=== PATIENT | male | born 1940 | race Caucasian/White ===

== ENCOUNTER 2018-05-17 10:24 | Outpatient (CLI) | payer MEDICARE ==
[~2018-05-17] VITALS: Ht 172.7 cm; Wt 111.4 kg
[2018-05-17 10:49] VITALS: BP 169/83
[2018-05-17] MEDS ORDERED: METO-333 PO (11:11)
[2018-05-17] MEDS ORDERED: AMLO5TAB9 PO (11:11)
[2018-05-17] MEDS ORDERED: FINA5TAB6 PO (11:11)
[2018-05-17] MEDS ORDERED: ASCO500C17 PO (11:11)
[2018-05-17] MEDS ORDERED: VITA1CAP PO (11:11)
[2018-05-17] MEDS ORDERED: ACET325C5 PO (11:12)
[2018-05-17] MEDS ORDERED: ACET-77 PO (14:21)
[2018-05-17] MEDS ORDERED: TRAM50TA2 PO (14:23)
== END 2018-05-17 14:54 | disposition home or self-care (01) ==
LOC: PREOP 10:24
PROVIDERS: ATTEND Orthopaedic Surgery Orthopaedic Surgery of the Spine
DX: Z01.818 Encounter for other preprocedural examination (principal)
CPT/HCPCS: 87081

== ENCOUNTER 2018-05-24 08:07 | Inpatient (IN) | payer MEDICARE ==
--- NOTE | 2018-05-17 14:23 | NUR ---
SPOKE WITH THE PATIENTS FAMILY OVER THE PHONE, SHE VERIFIED THAT THE PATIENT GETS SHORT TERM MEDICATIONS AT [facility] IN [place] BUT MAINTENANCE MEDS COME FROM [facility] MAIL ORDER. I CALLED [facility] AND VERIFIED THE PRESCRIPTION MEDICATION. [facility] FILLED TRAMADOL 50MG 1 Q4-6H PRN TODAY FOR THE PATIENT TO TAKE UNTIL SURGERY. THEY FILLED IT FOR #30 TABLETS. I ADDED IT TO THE MED REC AT THIS TIME. [facility] FILLED: 05-10-18 FINASTERIDE 5MG DAILY #90 05-10-18 METOPROLOL TARTRATE 25MG DAILY #90 04-27-18 AMLODIPINE 5MG DAILY #90 OTC MEDS: TYLENOL 500MG PRN B COMPLEX DAILY VITAMIN C BID
[~2018-05-24] VITALS: Ht 167.6 cm; Wt 108.2 kg
[~2018-05-24 08:07] MED LIST: ACET-77 PO; ACET325C5 PO; ACETAMINOPHEN 325 MG TABLET PO PRN; AMLO5TAB9 PO; ASCO500C17 PO; DOCUSATE SODIUM 100 MG (COLACE) CAP PO PRN; FINA5TAB6 PO; HYDROcodone/APAP 5 MG/325 MG (LORTAB) TAB PO PRN; METO-333 PO; ONDANSETRON 4 MG/2 ML (SDV) Z0FRAN IV PRN; TRAM50TA2 PO; VITA1CAP PO
[2018-05-24 08:20] VITALS: BP 107/77
[2018-05-24] MEDS: LACTATED RINGERS 1,000 ML IV PRN ×2 (08:36→10:52)
[2018-05-24] MEDS ORDERED: ceFAZolin 2 GM IV Premixed 50 ML IV ONE (08:45)
[2018-05-24] MEDS ORDERED: LIDOCAINE PF 2% 5 ML (XYLOCAINE) VIAL ONE (09:16)
[2018-05-24] MEDS ORDERED: ONDANSETRON 4 MG/2 ML (SDV) Z0FRAN ONE (09:16)
[2018-05-24] MEDS ORDERED: proPOfol 200 MG/20 ML (DIPRIVAN) VIAL IV ONE (09:16)
[2018-05-24] MEDS ORDERED: ROCURONIUM 10 MG/ML 5 ML SYRINGE IV ONE (09:16)
[2018-05-24] MEDS ORDERED: fentaNYL INJECTION 100 MCG/2 ML AMP ONE (09:17)
[2018-05-24] MEDS ORDERED: MIDAZOLAM 2 MG/2 ML (VERSED) VIAL ONE (09:17)
[2018-05-24] MEDS ORDERED: SUCCINYLCHOLINE INJ 100 MG/5 ML SYR ONE (09:19)
[2018-05-24] MEDS ORDERED: SEVOFLURANE (ULTANE) 15 ML INHAL SOLN ONE ×8 (09:22→11:42)
[2018-05-24] MEDS ORDERED: PROPOFOL INJECTION 0 ML IV ONE (09:22)
[2018-05-24] MEDS ORDERED: GENTAMICIN 40 MG/ML 2 ML INJ SDV ONE (09:42)
[2018-05-24] MEDS ORDERED: PROPOFOL INJECTION 50 ML IV ONE ×4 (10:35→11:42)
[2018-05-24] MEDS ORDERED: CEFAZOLIN IV SCH (11:00)
[2018-05-24] MEDS ORDERED: WATER IV SCH (11:00)
--- NOTE | 2018-05-24 11:35 | Progress Note-Post Operative ---
Post-Operative Progess Note Surgeon (s)/Commercial Diver (s) Surgeon YAN LUA MD Commercial Diver: EDIE Tay Pre-Operative Diagnosis Stenosis Post-Operative Diagnosis Same Procedure & Operative Findings Date of Procedure 05/24/18 Procedure Performed/Findings C3-6 ACDF Anesthesia Type GETA Estimated Blood Loss Estimated blood loss (mL): minimal Specimens/Packing Specimens Removed None YAN LUA MD May 24, 2018 11:35
[2018-05-24] MEDS ORDERED: GLYCOPYRROLATE 0.2 MG/ML (ROBINUL) 2 ML VIAL ONE (11:39)
[2018-05-24] MEDS ORDERED: NEOSTIGMINE 1 MG/ML 5 ML SYRINGE ONE (11:39)
[2018-05-24] MEDS ORDERED: morphine INJ 10 MG/ML 1ML (SYR OR VIAL) IVP ONE (12:00)
[2018-05-24] MEDS ORDERED: MEPERIDINE (DEMEROL) INJ 50 MG/ML IVP ONE (12:00)
[2018-05-24] MEDS ORDERED: ONDANSETRON 4 MG/2 ML (SDV) Z0FRAN IVP PRN (12:00)
[2018-05-24] MEDS ORDERED: morphine INJ 10 MG/ML 1ML (SYR OR VIAL) ONE (12:15)
[2018-05-24 12:25] VITALS: BP 173/73
--- NOTE | 2018-05-24 12:43 | Diagnostic Imaging Report ---
Indication: Fluoroscopy during cervical spine surgery. Fluoroscopy was provided in the OR during cervical spine surgery. 12 seconds of fluoroscopy was utilized. Anterior plate and screws transfix C3-C6 levels. Impression: Fluoroscopy during cervical spine surgery. Dictated by: Dictated on workstation # [id number]
[2018-05-24] MEDS: MULTIVIT W/MINERALS TAB (THERAGRAN M) PO SCH (14:20)
[2018-05-24] MEDS: MILK OF MAGNESIA 400 MG/5 ML 30 ML UDC PO SCH (14:20)
[2018-05-24] MEDS: PANTOPRAZOLE 40 MG (PROTONIX) TAB PO SCH (14:21)
[2018-05-24] MEDS: NS IV 1000 ML 1,000 ML IV SCH (15:52)
[2018-05-24] MEDS: morphine INJ 10 MG/ML 1ML (SYR OR VIAL) IVP PRN ×2 (15:52→19:28)
[2018-05-24 16:00] VITALS: BP 194/95
[2018-05-24] MEDS: ceFAZolin 2 GM IV Premixed 50 ML IV SCH (19:42)
[2018-05-24 20:00] VITALS: BP 165/79
--- NOTE | 2018-05-24 20:41 | OPERATIVE REPORT ---
DATE OF SERVICE: 05/24/2018 PREOPERATIVE DIAGNOSES: Cervical stenosis, neural canal degenerative disk and osseous structures, cervical spondylosis with myelopathy and cervical radiculopathy. POSTOPERATIVE DIAGNOSES: Cervical stenosis, neural canal degenerative disk and osseous structures, cervical spondylosis with myelopathy and cervical radiculopathy. PROCEDURES PERFORMED: 1. C3-4 anterior cervical diskectomy and fusion. 2. C4-5 anterior cervical diskectomy and fusion. 3. C5-C6 anterior cervical diskectomy and fusion. 4. C3-4, C4-5, C5-6 interbody cage instrumentation without interval fixation. 5. C3-C6 anterior plate instrumentation. 6. Allograft for spine surgery, morselized. DATE AND TIME OF SURGERY: Please see anesthesia record. IMPLANTS USED: K2M [place] cage, Medtronic Zevo plate, Medtronic Orthoblend bone graft. SURGEON: Yan Solitario MD. BIOFUELS PRODUCT DEVELOPMENT MANAGER: SANTHOSH Tay. ROLE OF AERODYNAMICS PROFESSOR: Aid in retraction of the procedure, aid in implantation, instrumentation and wound closure. ANESTHESIA: General endotracheal. ESTIMATED BLOOD LOSS: Less 100 mL. INTRAVENOUS FLUIDS: Please see anesthesia record. ANTIBIOTICS: Ancef. COMPLICATIONS: None. INDICATIONS FOR PROCEDURE: The patient is 78 male with progressively intolerable neck pain, gait disturbance, stenosis, failed conservative therapy, desires operative treatment. NEUROMONITORING: Standard intraoperative neuromonitoring carried out by means of real time continuous high quality bidirectional mode, audio and visual communication to both the automotive repair technician and surgeon by Dr. Owens was performed. SSEPS, EMGs, TcMEPs, TOFs were carried out continuously throughout the procedure stable. DESCRIPTION OF PROCEDURE: The patient was taken to the preoperative holding area and brought back to the operative suite. After adequate induction of general anesthesia, preoperative antibiotics, placed spinal monitoring, placed supine on the OR table. Shoulder roll was placed, head extended sterile prep and drape, the anterior cervical spine. A standard left-sided Ramirez-Tinsley approach, the appropriate levels carried out. Once appropriate levels were confirmed on imaging, Shadow-Line retractor was placed deep for the remainder of the case and starting at C3-4, Avon pins placed. Anterior diskectomy was carried out. Disk decompression all the way down to the posterior longitudinal ligament was performed. Implants were prepared. Trial spacer was utilized and the appropriate-sized [place] cage filled with Allograft bone was impacted in position with great fit achieved. Procedure was then carried out at C4-5 and C5-6 levels in a similar manner and once all three levels were performed, Avon pins were removed. The anterior osteophytes were taken down. The appropriate size Zevo plate was affixed to the spine with a combination of 13 mm, 15 mm and 17 mm variable angle screws. Locking mechanism was deployed. Wound was copiously irrigated. FloSeal and bipolar cautery used to aid in hemostasis. Deep drain was placed. Wound was closed in layers. The patient was transferred to recovery room in stable condition and tolerated the procedure well with stable spinal monitoring. Job ID: [id number] DocumentID: [id number] Dictated Date: 05/24/2018 11:35:13 [employer] Administrator Date: 05/24/2018 20:40:41 Dictated By: YAN SOLITARIO MD MTDD
[2018-05-25] VITALS: BP 184/88
[2018-05-25] MEDS: ceFAZolin 2 GM IV Premixed 50 ML IV SCH ×2 (01:05→10:09)
[2018-05-25] MEDS: NS IV 1000 ML 1,000 ML IV SCH ×3 (01:10→22:21)
[2018-05-25 04:00] VITALS: BP 181/86
[2018-05-25] MEDS: MULTIVIT W/MINERALS TAB (THERAGRAN M) PO SCH (06:15)
[2018-05-25] MEDS: PANTOPRAZOLE 40 MG (PROTONIX) TAB PO SCH (06:15)
--- NOTE | 2018-05-25 07:25 | Progress Note (SOAP) ---
Subjective Date Seen by a Provider: May 25, 2018 Time Seen by a Provider: 07:23 Subjective/Events-last exam Pain ok, hands feel better. Worried about baker. Wants to shower. Objective Exam Vital Signs Date Time Temp Pulse Resp B/P (MAP) Pulse Ox O2 Delivery O2 Flow Rate FiO2 05/25/18 04:00 96.7 89 20 181/86 (117) 91 Room Air 05/25/18 00:00 98.6 92 20 184/88 (120) 97 Room Air 05/24/18 20:00 98.8 101 19 165/79 (107) 90 Room Air 05/24/18 16:00 96.5 110 18 194/95 (128) 91 Room Air 05/24/18 12:55 Room Air 05/24/18 12:25 95.9 85 18 173/73 (106) 92 Room Air 05/24/18 09:04 95 Room Air 05/24/18 08:20 97.0 86 22 107/77 (87) 95 Room Air I & O 05/25/18 07:00 Intake Total 2400 ml Output Total 3195 ml Balance -795 ml Capillary Refill : General Appearance: No Apparent Distress HEENT: Other (phonation good, no stridor, ) Neck: Supple Respiratory: No Accessory Muscle Use, No Respiratory Distress Gastrointestinal: soft Extremity: No Calf Tenderness Neurologic/Psychiatric: Alert, Oriented x3, No Motor/Sensory Deficits Skin: Other (incision good) Assessment/Plan Assessment/Plan Assess & Plan/Chief Complaint Cervical Spondylosis with myelopathy Cervical Stenosis Urinary retention Plan: Try d/c baker, may need leg bag. Up with PT today D/C drain later today. YAN LUA MD May 25, 2018 07:25
[2018-05-25 08:00] VITALS: BP 199/91
[2018-05-25] MEDS: MILK OF MAGNESIA 400 MG/5 ML 30 ML UDC PO SCH (09:06)
--- NOTE | 2018-05-25 09:38 | Consultation-Hospitalist ---
KAREN GAMBINO 05/25/18 0938: HPI History of Present Illness: HPI/Chief Complaint CC: s/p uncomplicated cervical spine surgery by Dr. 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, who had an uncomplicated cervical spine surgery yesterday He is having some cough so I did note course breath sounds and will initiate nebulizer treatments Pt was counseled on the use of his IS Pt's is wondering why he has tremors all the time and I updated her on the likelihood of cervical spine surgery causing tremors, but may need workup as an outpatient Elevated blood pressure requiring Norvasc restarted Catheter is in place He used to walk ten miles a day before his back surgery Source: patient, family Exam Limitations: no limitations Date Seen 05/25/18 Attending Physician [place] Solitario MD PCP No,Local Physician Referring Physician Date of Admission May 24, 2018 at 08:07 Home Medications & Allergies Home Medications Reviewed patient Home Medication Reconciliation performed by pharmacy medication reconciliations forestry aid technician and/or nursing. Patients Allergies have been reviewed. Allergies Allergies Coded Allergies diphenhydramine (Verified Allergy, Unknown, 05/24/18) zolpidem (Verified Allergy, Unknown, 05/24/18) Past Nffgykq-Hbpkev-Nprvgz Hx Past Med/Social Hx: Reviewed Nursing Past Med/Soc Hx, Reviewed and Corrections made Patient Social History Marrital Status: Employed/Student: retired Alcohol Use: Occasionally Uses Alcohol Beverage of Choice: Beer Recreational Drug Use: No Smoking Status: Former Smoker Physical Abuse Screen: No Sexual Abuse: No Recent Foreign Travel: No Contact w/other who traveled: No Recent Hopitalizations: No Recent Infectious Disease Expo: No Immunizations Up To Date Date of Pneumonia Vaccine: Jan 25, 2018 Seasonal Allergies Seasonal Allergies: No Past Medical History Surgeries: Orthopedic Cardiac: Hypertension Sexually Transmitted Disease: No HIV/AIDS: No Genitourinary: Benign Prostatic Hyperpl Musculoskeletal: Arthritis, Chronic Back Pain HEENT: Macular Degeneration Loss of Vision: Bilateral Hearing Impairment: Denies Psychosocial: Anxiety, Depression History of Blood Disorders: No Adverse Reaction to Blood Lewis: No Family History Patient reports no known family medical history. Hypertension Review of Systems Constitutional: see HPI, weakness EENTM: no symptoms reported Respiratory: no symptoms reported Cardiovascular: no symptoms reported Gastrointestinal: no symptoms reported Genitourinary: other (catheter in place) Musculoskeletal: neck pain Skin: no symptoms reported Psychiatric/Neurological: Tremors Physical Exam Physical Exam Vital Signs Vital Signs - First Documented 05/24/18 08:20 Temp 97.0 Pulse 86 Resp 22 B/P (MAP) 107/77 (87) Pulse Ox 95 O2 Delivery Room Air Capillary Refill : Height, Weight, BMI Height: 5'6.00" Weight: 238lbs. 8.0oz. 108.424299xr; 36.4 BMI Method: General Appearance: No Apparent Distress, WD/WN, Chronically ill Eyes: Bilateral Eye Normal Inspection, Bilateral Eye PERRL HEENT: PERRL/EOMI, TMs Normal, Normal ENT Inspection, Pharynx Normal, Other ( phonation good, no stridor, ) Neck: Full Range of Motion, Normal Inspection, Non Tender, Supple Respiratory: Chest Non Tender, No Accessory Muscle Use, No Respiratory Distress , Crackles, Expiration, Rales, Wheezing Cardiovascular: Regular Rate, Rhythm, No Edema, No Gallop, No JVD, No Murmur, Normal Peripheral Pulses Gastrointestinal: Normal Bowel Sounds, No Organomegaly, No Pulsatile Mass, Non Tender, Soft Back: Normal Inspection, No CVA Tenderness, No Vertebral Tenderness Extremity: No Calf Tenderness Neurologic/Psychiatric: Alert, Oriented x3, No Motor/Sensory Deficits Skin: Normal Color, Warm/Dry, Other (incision good) Lymphatic: No Adenopathy Results Results/Procedures Labs Laboratory Tests 05/25/18 11:31 Patient resulted labs reviewed. Assessment/Plan Assessment and Plan Assess & Plan/Chief Complaint Assessment: S/p uncomplicated cervical spine surgery POD # 1 Course breath sounds initiated, nebulizer treatments and IS and checking CXR Former smoker HTN Tremor New hypercalcemia Plan: Pain control Check labs in AM Restart blood pressure medicine Check ionized calcium and PTH but I suspect neoplastic process causing the Hypercalcemia Check CT scan in morning Rubio catheter will be removed per protocol Nebs O2 Diagnosis/Problems Diagnosis/Problems (1) Cervical spondylosis with myelopathy Status: Acute (2) Cervical stenosis of spinal canal Status: Resolved (3) Hypercalcemia Status: Acute (4) Hypertension Status: Chronic Qualifiers: Hypertension type: essential hypertension Qualified Codes: I10 - Essential (primary) hypertension (5) Benign prostate hyperplasia Status: Chronic Qualifiers: Lower urinary tract symptom presence: unspecified whether lower urinary tract symptoms present Qualified Codes: N40.0 - Benign prostatic hyperplasia without lower urinary tract symptoms (6) Rales Status: Acute (7) Former smoker Status: Chronic (8) Indwelling Rubio catheter present Status: Acute (9) Leukocytosis Status: Acute Qualifiers: Leukocytosis type: leukemoid reaction Qualified Codes: D72.823 - Leukemoid reaction (10) Lung mass Status: Acute GISELL GOODEN MEDICAL STUDENT 05/25/18 1230: HPI History of Present Illness: HPI/Chief Complaint CC: Post/op C3-C6 fusion HPI: This is a 78 yo white male who was admitted to [facility] s/p C3-[address] Solitario for recovery and inpatient PT/OT. The pt denies any pain or difficulty with urination/bowel movements. The is concerned for increased tremors in the pt's bilateral hands since recovering from anesthesia. The states the tremors are chronic and the pt has not seen a Neurologist for evaluation. The pt feels he is more "shaky" since he is still unsteady in his movements since surgery. Denies numbness, weakness, tingling. Source: patient, family Exam Limitations: no limitations Referring Physician Dr. Solitario Home Medications & Allergies Home Medications Active Scripts Medications Dose Route/Sig Max Daily Dose Days Date Category Tramadol HCl 50 Mg Tablet 50 Mg PO EVERY 4-6 HOURS PRN 05/17/18 Reported Acetaminophen 500 Mg Tablet 500-1,000 Mg PO Q6H PRN 05/17/18 Reported Vitamin B Complex 1 Each Capsule 1 Cap PO DAILY 05/17/18 Reported Vitamin C (Ascorbic Acid) 500 Mg Capsule 500 Mg PO BID 05/17/18 Reported Finasteride 5 Mg Tablet 5 Mg PO DAILY 05/17/18 Reported Metoprolol Tartrate 25 Mg Tablet 25 Mg PO HS 05/17/18 Reported Amlodipine Besylate 5 Mg Tablet 5 Mg PO DAILY 05/17/18 Reported Past Osdsoef-Iussme-Wgvxsd Hx Past Med/Social Hx: Reviewed Nursing Past Med/Soc Hx Patient Social History Marrital Status: Alcohol Use: Occasionally Uses Alcohol Beverage of Choice: Beer Recreational Drug Use: No Smoking Status: Former Smoker Former Smoker, Quit: May 25, 2018 Physical Abuse Screen: No Sexual Abuse: No Recent Foreign Travel: No Contact w/other who traveled: No Recent Hopitalizations: No Recent Infectious Disease Expo: No Seasonal Allergies Seasonal Allergies: No Past Medical History Cardiac: Hypertension Genitourinary: Benign Prostatic Hyperpl Musculoskeletal: Arthritis, Chronic Back Pain History of Blood Disorders: No Adverse Reaction to Blood Lewis: No Family History Patient reports no known family medical history. No Pertinent Family Hx Review of Systems Constitutional: No chills, No fever EENTM: No hearing loss, No double vision Respiratory: No cough, No dyspnea on exertion, No short of breath Cardiovascular: No chest pain Gastrointestinal: No abdominal pain, No nausea, No vomiting Genitourinary: No dysuria Musculoskeletal: neck pain Skin: no symptoms reported Psychiatric/Neurological: No Symptoms Reported Physical Exam Physical Exam General Appearance: No Apparent Distress, WD/WN Eyes: Bilateral Eye PERRL, Bilateral Eye EOMI HEENT: TMs Normal, Normal ENT Inspection, Pharynx Normal, Moist Mucous Membranes, Other (neck brace in place) Respiratory: Chest Non Tender, No Accessory Muscle Use, No Respiratory Distress , Expiration, Wheezing Cardiovascular: Regular Rate, Rhythm, No Edema, No Gallop, Normal Peripheral Pulses Gastrointestinal: Normal Bowel Sounds, No Organomegaly, No Pulsatile Mass, Non Tender, Soft Extremity: Normal Capillary Refill, Normal Range of Motion, Non Tender, No Calf Tenderness, No Pedal Edema Neurologic/Psychiatric: Alert, Oriented x3, No Motor/Sensory Deficits, Normal Mood/Affect, sap consultant II-XII Norm as Tested Skin: Normal Color, Warm/Dry Lymphatic: No Adenopathy Results Results/Procedures Imaging: Reviewed Imaging Films, Reviewed Imaging Report Assessment/Plan Assessment and Plan Assess & Plan/Chief Complaint Assessment: Cervical spondylosis and stenosis s/p C3-6 fusion Adventitious breath sounds, crackles Hypercalcemia Tremor BPH HTN Prior smoker Plan: Instructed pt to continue incentive spirometry Duonebs one time to help clear chest congestion Monitor electrolytes and pt condition, if hypercalcemia worsens can order PTH level and EKG CXR to r/o lung mass as cause of coarse breath sounds and hypercalcemia PT/OT Tremor appeared to be worse with movement, most likely essential. Pt can f/u w/ Neurology as outpatient if needed Continue home meds Diagnosis/Problems Diagnosis/Problems (1) Cervical spondylosis with myelopathy Status: Acute (2) Cervical stenosis of spinal canal Status: Resolved (3) Hypercalcemia Status: Acute (4) Hypertension Status: Chronic Qualifiers: Hypertension type: essential hypertension Qualified Codes: I10 - Essential (primary) hypertension (5) Benign prostate hyperplasia Status: Chronic Qualifiers: Lower urinary tract symptom presence: unspecified whether lower urinary tract symptoms present Qualified Codes: N40.0 - Benign prostatic hyperplasia without lower urinary tract symptoms KAREN GAMBINO DO May 25, 2018 09:38 GISELL GOODEN MEDICAL STUDENT May 25, 2018 12:30
[2018-05-25] MEDS ORDERED: amLODIPine 5 MG (NORVASC) TAB PO NR (09:45)
--- NOTE | 2018-05-25 10:15 | Physical Therapy Evaluation ---
PT Evaluation-General Medical Diagnosis Admission Date May 24, 2018 at 08:07 Medical Diagnosis: cervical stenosis Onset Date: May 24, 2018 Therapy Diagnosis Therapy Diagnosis: debility Height/Weight Height (Feet): 5 Height (Inches): 6.00 Weight (Pounds): 238 Weight (Ounces): 8.0 Precautions Precautions/Isolations: Standard Precautions Weight Bear Status Right Lower Extremity: Right Full Weight Bearing Left Lower Extremity: Left Full Weight Bearing Referral Physician: Altaf Reason for Referral: Evaluation/Treatment Medical History Current History s/p cervical myelopathy Reviewed History: Yes Social History Home: Single Level Current Living Status: Spouse Prior/Core FIM Prior Level of Function Therapy Code Descriptions/Definitions Functional [place] Measure: 0=Not Assessed/NA 4=Minimal Assistance 1=Total Assistance 5=Supervision or Setup 2=Maximal Assistance 6=Modified [place] 3=Moderate Assistance 7=Complete [place] Therapy Quality Codes: 6 Independent with activity with or without an assistive device 5 Patient requires set up or clean up by helper. Patient completes activity by themselves 4 Supervision or touching assist (CGA). Jasper provide cues , steadying assist 3 The helper provides less than half the effort to complete the activity 2 The helper provides more than half the effort to complete the activity 1 Dependent. The helper does all the effort to complete an activity 7 Patient refused to complete or attempt activity 9 The patient did not perform the activity before the current illness or injury 88 Not attempted due to Medical conditions or safety concerns Functional Abilities and Goals: Independent: Patient completed the activities by him/herself, with or without an assistive device, with no assistance from a helper. Needed Some Help: Patient needed partial assistance from another person to complete activities. Dependent: A helper completed the activities for the patient. Unknown: Not Applicable: Bed Mobility: 6 Transfers (B,C,W/C) (FIM): 6 Gait: 6 Indoor Mobility (Ambulation): Independent Stairs: Independent Prior Devices Use: Walker PT Evaluation-Current Subjective Patient and spouse agree to PT. Pain Numeric Pain Scale: 5-Moderate Pain Location: Soft Tissue Location Body Site: Neck Pain Description: Acute Objective Patient Orientation: Normal For Age Problem Solving: Fair Attachments: Rubio Catheter, IV ROM/Strength ROM Lower Extremities bilateral LE WFL Strength Lower Extremities 4-/5 grossly bilaterally Integumentary/Posture Integumentary refer to nursing note Bladder Incontinence: Rubio Cath Posture slightly kyphotic Neuromuscular (Tone, Coordination, Reflexes) slightly diminished with all/when he becomes anxious, he demonstrates bilateral hand tremors Sensory Vision: macular degeneration Hearing: Impaired Sensation Right Lower Extremit: Impaired Sensation Left Lower Extremity: Impaired Transfers Therapy Code Descriptions/Definitions Functional [place] Measure: 0=Not Assessed/NA 4=Minimal Assistance 1=Total Assistance 5=Supervision or Setup 2=Maximal Assistance 6=Modified [place] 3=Moderate Assistance 7=Complete [place] Transfers (B, C, W/C) (FIM): 5 Scootin Rollin Supine to/from Sit: 5 Sit to/from Stand: 5 Gait Mode of Locomotion: Walk Anticipated Mode of Locomotion: Walk Gait (FIM): 4 Distance (FIM): 3=150 ft Distance: 250' Gait Level of Assist: 4 Gait Persons Needed: 1 Gait Assistive Device: FWW Comments/Gait Description steady pace,/safe and functional Balance Sitting Static: Good Sitting Dynamic: Good Standing Static: Good Standing Dynamic: Good Assessment/Needs 78 y.o. male, will benefit from short term skilled PT to address functional strength and mobility to improve current LOF and to safely return to home with spouse at maximum LOF. Rehab Potential: Fair PT Short Term Goals Short Term Goals Time Frame: May 28, 2018 Transfers (B,C,W/C) (FIM): 5 Gait (FIM): 5 Distance (FIM): 3=150 ft Gait Distance Comment: 250' Gait Level of Assist: 5 Gait Assistive Device: FWW PT Plan Problem List Problem List: Activity Tolerance, Safety, Gait Treatment/Plan Treatment Plan: Continue Plan of Care Treatment Plan: Bed Mobility, Education, Functional Activity Eriberto, Functional Strength, Gait, Safety, Therapeutic Exercise, Transfers Treatment Duration: May 28, 2018 Frequency: 4 times per week Estimated Hrs Per Day: .25 hour per day Patient and/or Family Agrees t: Yes Discharge Recommendations Therapy D/C Recommendations: Home w/ Family Support Time/GCodes Time In: 827 Time Out: 851 Total Billed Treatment Time: 24 Total Billed Treatment 1 visit EVModC 24 min KIMBERLY BURTON PT May 25, 2018 10:15
--- NOTE | 2018-05-25 10:49 | Diagnostic Imaging Report ---
PATIENT HISTORY: Cervical spine fusion, postop. TECHNIQUE: Two views of the cervical spine. COMPARISON: Fluoroscopy from 05/24/2018. FINDINGS: There is fusion of the cervical spine from C3 through C6 with an anterior plate and paired screws at each level. Interbody disc spacers are seen at the interval levels as well. No spondylolisthesis is seen. No immediate hardware complication is seen. There is mild prevertebral soft tissue edema. A surgical drain is noted. IMPRESSION: Anterior fusion of C3 through C6 without immediate hardware complication seen. Dictated by: Dictated on workstation # [id number]
[2018-05-25 11:41] LABS: BASOPHILS % (AUTO) 0 % (0-10); EOSINOPHILS % (AUTO) 0 % (0-10); HEMATOCRIT 40 % (40-54); HEMOGLOBIN 14.5 G/DL (13.3-17.7); LYMPHOCYTES # (AUTO) 1.7 X 10^3 (1.0-4.0); LYMPHOCYTES % (AUTO) 8 % (12-44); MEAN CORPUSCULAR HEMOGLOBIN 34 PG (25-34); MEAN CORPUSCULAR HGB CONC 36 G/DL (32-36); MEAN CORPUSCULAR VOLUME 95 FL (80-99); MONOCYTES # (AUTO) 1.9 X 10^3 (0.0-1.0); MONOCYTES % (AUTO) 10 % (0-12); NEUTROPHILS # (AUTO) 16.7 X 10^3 (1.8-7.8); NEUTROPHILS % (AUTO) 82 % (42-75); PLATELET COUNT 274 10^3/uL (130-400); RED CELL DISTRIBUTION WIDTH 13.3 % (10.0-14.5); WHITE BLOOD COUNT 20.3 10^3/uL (4.3-11.0)
--- NOTE | 2018-05-25 11:54 | Occupational Therapy Eval ---
OT Evaluation-General/PLF Medical Diagnosis Admission Date May 24, 2018 at 08:07 Medical Diagnosis: cervical stenosis Onset Date: May 24, 2018 Therapy Diagnosis Therapy Diagnosis: decreased self care skills Height/Weight Height (Feet): 5 Height (Inches): 6.00 Weight (Pounds): 238 Weight (Ounces): 8.0 Precautions Precautions/Isolations: Fall Prevention, Standard Precautions Safety Interventions: Notify Family, Bed Exit Alarm, Reorient-PRN Comments cervical collar Referral Physician: Altaf Medical History Pertinent Medical History: Arthritis Additional Medical History chronic back pain, macular degeneration, anxiety, depression Current History pt s/p cervical surgery Reviewed History: Yes Social History Home: Single Level Current Living Status: Spouse Entry Into Home: Stairs With Railing Steps Into Home: 5 ADL-Prior Level of Function Therapy Code Descriptions/Definitions Functional Sweeny Measure: 0=Not Assessed/NA 4=Minimal Assistance 1=Total Assistance 5=Supervision or Setup 2=Maximal Assistance 6=Modified Sweeny 3=Moderate Assistance 7=Complete Sweeny Therapy Quality Codes: 6 Independent with activity with or without an assistive device 5 Patient requires set up or clean up by helper. Patient completes activity by themselves 4 Supervision or touching assist (CGA). [place] provide cues , steadying assist 3 The helper provides less than half the effort to complete the activity 2 The helper provides more than half the effort to complete the activity 1 Dependent. The helper does all the effort to complete an activity 7 Patient refused to complete or attempt activity 9 The patient did not perform the activity before the current illness or injury 88 Not attempted due to Medical conditions or safety concerns Functional Abilities and Goals: Independent: Patient completed the activities by him/herself, with or without an assistive device, with no assistance from a helper. Needed Some Help: Patient needed partial assistance from another person to complete activities. Dependent: A helper completed the activities for the patient. Unknown: Not Applicable: ADL PLOF Comments Pt states he was independent prior to surgery. Spouse states she was assisting with socks and shoes. Uses a cane for mobility. Self Care: Needed Some Help DME/Equipment: Tall Toilet, Tub/Shower OT Current Status Subjective Pt sitting in chair, agrees to treatment. Reports 3/10 pain. Mental Status/Objective Patient Orientation: Person, Place Attachments: Rubio Catheter, IV Current Glasses/Contacts: No Dentures/Partials: Yes Hand Dominance: Right Upper Extremity ROM mildly decreased Upper Extremity Coordination decreased bilaterally Upper Extremity Sensation Pt reports numbness in bilateral hands. States rapid onset about 4 months ago. ADL-Treatment ADL-Current Pt participated in UE assessment while seated. Pt declined grooming or dressing at this time. States he will complete shower later today after IV is finished. Pt demonstrated sit to stand with supervision and cues for safety. Demonstrates ability to perform transfer with CGA using FWW. Pt declined ADL tasks. Pt sitting in chair with needs met and spouse present after session. Therapy Code Descriptions/Definitions Functional Sweeny Measure: 0=Not Assessed/NA 4=Minimal Assistance 1=Total Assistance 5=Supervision or Setup 2=Maximal Assistance 6=Modified Sweeny 3=Moderate Assistance 7=Complete Sweeny Therapy Quality Codes: 6 Independent with activity with or without an assistive device 5 Patient requires set up or clean up by helper. Patient completes activity by themselves 4 Supervision or touching assist (CGA). [place] provide cues , steadying assist 3 The helper provides less than half the effort to complete the activity 2 The helper provides more than half the effort to complete the activity 1 Dependent. The helper does all the effort to complete an activity 7 Patient refused to complete or attempt activity 9 The patient did not perform the activity before the current illness or injury 88 Not attempted due to Medical conditions or safety concerns Eating (FIM): 5 (Pt reports feeding self after set up) Education OT Patient Education: Rehab process Teaching Recipient: Patient Teaching Methods: Discussion Response to Teaching: Verbalize Understanding OT Short Term Goals Short Term Goals Transfers (B,C,W/C) (FIM): 5 1=Demonstrate adherence to instructed precautions during ADL tasks. 2=Patient will verbalize/demonstrate understanding of assistive devices/ modifications for ADL. 3=Patient will improve strength/tolerance for activity to enable patient to perform ADL's. OT Correction Goals Correction Goals Time Frame: Jun 01, 2018 Eating (FIM): 6 Grooming(FIM): 6 Upper Body Dressing(FIM): 5 Lower Body Dressing(FIM): 5 Toileting(FIM): 5 Toilet/Commode Transfer(FIM): 5 Additional Goals: 1-Demonstrate ADL Tasks, 2-Verbalize Understanding, 3- ImproveStrength/[place] 1=Demonstrate adherence to instructed precautions during ADL tasks. 2=Patient will verbalize/demonstrate understanding of assistive devices/ modifications for ADL. 3=Patient will improve strength/tolerance for activity to enable patient to perform ADL's. OT Education/Plan Problem List/Assessment Assessment: Decreased Activ Tolerance, Decreased UE Strength, Dependent Transfers, Impaired Self-Care Skills Pt to benefit from skilled OT intervention for ADL training, transfers, strengthening, and home safety education to increase independence and allow safe discharge. Discharge Recommendations Plan/Recommendations: Continue POC Treatment Plan/Plan of Care Treatment,Training & Education: Yes Patient would benefit from OT for education, treatment and training to promote independence in ADL's, mobility, safety and/or upper extremity function for ADL' s. Plan of Care: ADL Retraining, Functional Mobility, UE Funct Exercise/Act Treatment Duration: Jun 01, 2018 Frequency: 5 times per week Estimated Hrs Per Day: .25 hour per day Rehab Potential: Fair Time/GCodes Start Time: 10:38 Stop Time: 10:56 Total Time Billed (hr/min): 18 Billed Treatment Time 1 visit, EVM(18minutes) JOLLY STONE OT May 25, 2018 11:54
[2018-05-25 11:59] LABS: ALBUMIN 4.1 GM/DL (3.2-4.5); BILIRUBIN,TOTAL 0.4 MG/DL (0.1-1.0); CREATININE SERUM 1.18 MG/DL (0.60-1.30); POTASSIUM 3.7 MMOL/L (3.6-5.0)
[2018-05-25 12:00] VITALS: BP 186/87
[2018-05-25 12:13] LABS: BASOPHILS % (MANUAL) 0 %; EOSINOPHILS % (MANUAL) 0 %; LYMPHOCYTES % (MANUAL) 5 %; MONOCYTES % (MANUAL) 7 %; NEUTROPHILS % (MANUAL) 88 %; RBC MORPH NORMAL
--- NOTE | 2018-05-25 15:16 | NUR ---
Pastoral care visit, offered support, expressed department availability and services.
[2018-05-25 16:00] VITALS: BP 167/74
[2018-05-25] MEDS: RT-ALBUTEROL SULF 2.5 MG/3 ML PRE-MIX VIAL INH SCH ×3 (16:05→21:38)
--- NOTE | 2018-05-25 16:53 | Anesthesia-General Post-Op ---
General Patient Condition Mental Status/LOC: Same as Preop Cardiovascular: Satisfactory Nausea/Vomiting: Absent Respiratory: Satisfactory Pain: Controlled Complications: Absent Post Op Complications Complications None Follow Up Care/Instructions Patient Instructions None needed. Anesthesia/Patient Condition Patient Condition Patient is doing well, having essential tremors which are not new for the patient, stable vital signs, no apparent adverse anesthesia problems. JULIAN GIANG DO May 25, 2018 16:53
--- NOTE | 2018-05-25 17:03 | Diagnostic Imaging Report ---
INDICATION: Wheezing and elevated calcium levels. Time of exam 2:19 p.m. COMPARISON: No prior studies are available for comparison. FINDINGS: The heart is mildly enlarged. There is a lobulated density in the right base, best seen on the frontal view. There also appears to be a small to moderate effusion on the right. Left lung is fairly clear. No pneumothorax is seen. IMPRESSION: Right basilar density. Mass cannot be entirely excluded. CT chest is recommended for further evaluation. Dictated by: Dictated on workstation # [id number]
[2018-05-25 19:18] VITALS: BP 172/83
[2018-05-25] MEDS ORDERED: meTOprolol TARTRATE 25 MG (LOPRESSOR) TABLET PO SCH (21:00)
[2018-05-26] VITALS: BP 187/95
[2018-05-26 04:27] VITALS: BP 128/80
--- NOTE | 2018-05-26 05:08 | NUR ---
THIS RN NOTIFIED OF CRITICAL LAB RESULTS ON IONIZED CALCIUM AND CALCIUM PTH. DR. GAMBINO AWARE OF CRITICAL VALUES AND UNABLE TO NOTIFY AT THIS TIME. WILL PASS ON TO DAYS SHIFT
[2018-05-26 06:27] LABS: BASOPHILS % (AUTO) 0 % (0-10); EOSINOPHILS % (AUTO) 0 % (0-10); HEMATOCRIT 38 % (40-54); HEMOGLOBIN 13.6 G/DL (13.3-17.7); LYMPHOCYTES # (AUTO) 1.2 X 10^3 (1.0-4.0); LYMPHOCYTES % (AUTO) 7 % (12-44); MEAN CORPUSCULAR HEMOGLOBIN 34 PG (25-34); MEAN CORPUSCULAR HGB CONC 36 G/DL (32-36); MEAN CORPUSCULAR VOLUME 94 FL (80-99); MONOCYTES # (AUTO) 1.8 X 10^3 (0.0-1.0); MONOCYTES % (AUTO) 10 % (0-12); NEUTROPHILS # (AUTO) 14.6 X 10^3 (1.8-7.8); NEUTROPHILS % (AUTO) 83 % (42-75); PLATELET COUNT 266 10^3/uL (130-400); RED CELL DISTRIBUTION WIDTH 13.1 % (10.0-14.5); WHITE BLOOD COUNT 17.5 10^3/uL (4.3-11.0)
[2018-05-26] MEDS: MULTIVIT W/MINERALS TAB (THERAGRAN M) PO SCH (06:46)
[2018-05-26] MEDS: PANTOPRAZOLE 40 MG (PROTONIX) TAB PO SCH (06:46)
--- NOTE | 2018-05-26 06:53 | Progress Note (SOAP) ---
Subjective Time Seen by a Provider: 06:51 Subjective/Events-last exam Pt states that he is doing better. Has better use of his arms and hands and the numbness is improving. Objective Exam Vital Signs Date Time Temp Pulse Resp B/P (MAP) Pulse Ox O2 Delivery O2 Flow Rate FiO2 05/26/18 04:27 97.4 94 20 128/80 (96) 96 Room Air 05/26/18 00:00 98.0 86 16 187/95 (125) 93 Room Air 05/25/18 21:00 Room Air 05/25/18 19:18 96.2 93 16 172/83 (112) 95 Room Air 05/25/18 16:07 95 Room Air 05/25/18 16:00 97.7 102 22 167/74 (105) 96 Room Air 05/25/18 12:00 97.1 79 18 186/87 (120) 96 Room Air 05/25/18 08:15 Room Air 05/25/18 08:00 98.3 89 18 199/91 (127) 95 Room Air I & O 05/26/18 07:00 Intake Total 2350 ml Output Total 660 ml Balance 1690 ml Capillary Refill : General Appearance: No Apparent Distress Extremity: Normal Range of Motion, No Calf Tenderness Neurologic/Psychiatric: Alert, Oriented x3, Sensory Deficit Results Lab Laboratory Tests 05/25/18 11:31: White Blood Count 20.3H, Red Blood Count 4.26L, Hemoglobin 14.5, Hematocrit 40, Mean Corpuscular Volume 95, Mean Corpuscular Hemoglobin 34, Mean Corpuscular Hemoglobin Concent 36, Red Cell Distribution Width 13.3, Platelet Count 274, Mean Platelet Volume 9.0, Neutrophils (%) (Auto) 82H, Lymphocytes (%) (Auto) 8L , Monocytes (%) (Auto) 10, Eosinophils (%) (Auto) 0, Basophils (%) (Auto) 0, Neutrophils # (Auto) 16.7H, Lymphocytes # (Auto) 1.7, Monocytes # (Auto) 1.9H, Eosinophils # (Auto) 0.0, Basophils # (Auto) 0.0, Neutrophils % (Manual) 88, Lymphocytes % (Manual) 5, Monocytes % (Manual) 7, Eosinophils % (Manual) 0, Basophils % (Manual) 0, Blood Morphology Comment NORMAL, Sodium Level 139, Potassium Level 3.7, Chloride Level 101, Carbon Dioxide Level 24, Anion Gap 14, Blood Urea Nitrogen 22H, Creatinine 1.18, Estimat Glomerular Filtration Rate 60 , BUN/Creatinine Ratio 19, Glucose Level 112H, Calcium Level 13.0*H, Corrected Calcium 12.9H, Total Bilirubin 0.4, Aspartate Amino Transf (AST/SGOT) 44H, Alanine Aminotransferase (ALT/SGPT) 18, Alkaline Phosphatase 112, Total Protein 8.0, Albumin 4.1 05/25/18 13:50: Ionized Calcium (Measured) 1.70*H, Ionized Calcium pH 7.40, Ionized Calcium ( Corrected) 1.71H, Parathyroid Hormone (Intact) 7.2L, Calcium (PTH Intact) 12.7*H 05/26/18 06:10: White Blood Count 17.5H, Red Blood Count 4.01L, Hemoglobin 13.6, Hematocrit 38L , Mean Corpuscular Volume 94, Mean Corpuscular Hemoglobin 34, Mean Corpuscular Hemoglobin Concent 36, Red Cell Distribution Width 13.1, Platelet Count 266, Mean Platelet Volume 9.0, Neutrophils (%) (Auto) 83H, Lymphocytes (%) (Auto) 7L , Monocytes (%) (Auto) 10, Eosinophils (%) (Auto) 0, Basophils (%) (Auto) 0, Neutrophils # (Auto) 14.6H, Lymphocytes # (Auto) 1.2, Monocytes # (Auto) 1.8H, Eosinophils # (Auto) 0.0, Basophils # (Auto) 0.0 Assessment/Plan Assessment/Plan Assess & Plan/Chief Complaint S/P Cervical fusion Stable from spine standpoint Continue with care with LOYD Pitt May 26, 2018 06:53
[2018-05-26 07:01] LABS: ALANINE AMINOTRANSFERASE 19 U/L (0-55); ALBUMIN 3.9 GM/DL (3.2-4.5); ALKALINE PHOSPHATASE 110 U/L (40-136); BILIRUBIN,TOTAL 0.7 MG/DL (0.1-1.0); BUN/CREATININE RATIO 20; CALCIUM 12.7 MG/DL (8.5-10.1); CARBON DIOXIDE 19 MMOL/L (21-32); CHLORIDE 100 MMOL/L (98-107); CREATININE SERUM 1.11 MG/DL (0.60-1.30); GFR ESTIMATED > 60; GLUCOSE 107 MG/DL (70-105); POTASSIUM 3.8 MMOL/L (3.6-5.0); SODIUM 134 MMOL/L (135-145); TOTAL PROTEIN 7.2 GM/DL (6.4-8.2)
[2018-05-26] MEDS ORDERED: NS 100 ML (IVPB) BAG IV ONE (08:30)
[2018-05-26] MEDS ORDERED: IOHEXOL 350 MG/ML 100 ML (OMNIPAQUE 350) VIAL IV ONE (08:30)
[2018-05-26] MEDS ORDERED: RECEIVED CONTRAST (Hold Metformin) IV SCH (08:30)
--- NOTE | 2018-05-26 08:50 | NUR ---
THIS RN WAS GOING TO PATIENT'S ROOM WHEN PCT INFORMED THAT PATIENT WAS LEAVING AMA AND WAS ALREADY IN CAR. PATIENT'S WAS IN ROOM PACKING BELONGINGS. SPOKE WITH ABOUT REASONING AND INFORMED HER OF RISKS OF PATIENT LEAVING BEFORE DR SHEPHERD
[2018-05-26] MEDS ORDERED: FINASTERIDE (PROSCAR) 5 MG TAB PO SCH (09:00)
[2018-05-26] MEDS ORDERED: amLODIPine 5 MG (NORVASC) TAB PO SCH (09:00)
--- NOTE | 2018-05-26 09:00 | NUR ---
AMA FORM FILLED OUT AND SIGNED BY . THIS RN ESCORTED TO CAR. IV REMOVED FROM PATIENT IN PRIVATE VEHICLE. CATHETER INTACT AND PRESSURE APPLIED SECURED WITH [employer] DRESSING. SPOKE WITH PATIENT ABOUT RISKS OF HIM LEAVING. PATIENT STATES "I WANT TO GET BETTER FROM HOME. I HAVE NO PAIN AND WANT TO GET HOME BEFORE THE ROADS GET BAD."
--- NOTE | 2018-05-26 09:01 | NUR ---
DR GAMBINO AND DR LUA INFORMED OF PATIENT LEAVING AMA.
--- NOTE | 2018-05-26 09:49 | Discharge Summary-Hospitalist ---
KAREN GAMBINO DO 05/26/18 0949: Diagnosis/Chief Complaint Date of Admission May 24, 2018 at 08:07 Date of Discharge Discharge Diagnosis (1) Cervical spondylosis with myelopathy Status: Acute (2) Cervical stenosis of spinal canal Status: Resolved (3) Hypercalcemia Status: Acute (4) Hypertension Status: Chronic (5) Benign prostate hyperplasia Status: Chronic (6) Rales Status: Acute (7) Former smoker Status: Chronic (8) Indwelling Rubio catheter present Status: Acute (9) Leukocytosis Status: Acute (10) Lung mass Status: Acute Discharge Summary Discharge Physical Exam Allergies: Coded Allergies: diphenhydramine (Verified Allergy, Unknown, 05/24/18) zolpidem (Verified Allergy, Unknown, 05/24/18) Vitals & I&Os Vital Signs Date Time Temp Pulse Resp B/P (MAP) Pulse Ox O2 Delivery O2 Flow Rate FiO2 05/26/18 04:27 97.4 94 20 128/80 (96) 96 Room Air General Appearance: No Apparent Distress HEENT: PERRL/EOMI, TMs Normal, Normal ENT Inspection, Pharynx Normal, Other ( phonation good, no stridor, ) Respiratory: Chest Non Tender, No Accessory Muscle Use, No Respiratory Distress , Crackles, Expiration, Rales, Wheezing Cardiovascular: Regular Rate, Rhythm, No Edema, No Gallop, No JVD, No Murmur, Normal Peripheral Pulses Gastrointestinal: Normal Bowel Sounds, No Organomegaly, No Pulsatile Mass, Non Tender, Soft Extremity: Normal Range of Motion, No Calf Tenderness Skin: Normal Color, Warm/Dry, Other (incision good) Neurologic/Psychiatric: Alert, Oriented x3, Sensory Deficit Hospital Course Was the Problem List Reviewed?: Yes Hospital course: Patient had a relatively uncomplicated hospital course after a cervical spine surgery by Dr. oSlitario. We uncovered hypercalcemia of 13 and abnormal chest x-ray with lung mass so a CT scan was scheduled but he decided he could not withstand undergoing that test so he left AGAINST MEDICAL ADVICE.He left against medical advice before CT scan of chest was completed apparently frightened about what we would find and I predicted it to be Squamous cell lung CA because he is a former smoker and hypercalcemia noted on labs Dr. Solitario was notified of against medical advice leaving so I did speak with [facility] in [place] with [facility] who will follow up and see the pt in the very near future Labs (last 24 hrs) Laboratory Tests 05/26/18 06:10: White Blood Count 17.5H, Red Blood Count 4.01L, Hemoglobin 13.6, Hematocrit 38L , Mean Corpuscular Volume 94, Mean Corpuscular Hemoglobin 34, Mean Corpuscular Hemoglobin Concent 36, Red Cell Distribution Width 13.1, Platelet Count 266, Mean Platelet Volume 9.0, Neutrophils (%) (Auto) 83H, Lymphocytes (%) (Auto) 7L , Monocytes (%) (Auto) 10, Eosinophils (%) (Auto) 0, Basophils (%) (Auto) 0, Neutrophils # (Auto) 14.6H, Lymphocytes # (Auto) 1.2, Monocytes # (Auto) 1.8H, Eosinophils # (Auto) 0.0, Basophils # (Auto) 0.0, Sodium Level 134L, Potassium Level 3.8, Chloride Level 100, Carbon Dioxide Level 19L, Anion Gap 15H, Blood Urea Nitrogen 22H, Creatinine 1.11, Estimat Glomerular Filtration Rate > 60, BUN /Creatinine Ratio 20, Glucose Level 107H, Calcium Level 12.7H, Corrected Calcium 12.8H, Total Bilirubin 0.7, Aspartate Amino Transf (AST/SGOT) 61H, Alanine Aminotransferase (ALT/SGPT) 19, Alkaline Phosphatase 110, Total Protein 7.2, Albumin 3.9 Patient resulted labs reviewed. Pending Labs Imaging: Reviewed Imaging Films, Reviewed Imaging Report Discussion & Recommendations Discharge Planning: <30 minutes discharge planning Discharge Home Medications: Active Scripts Active Reported Tramadol HCl 50 Mg Tablet 50 Mg PO EVERY 4-6 HOURS PRN Acetaminophen 500 Mg Tablet 500-1,000 Mg PO Q6H PRN Vitamin B Complex 1 Each Capsule 1 Cap PO DAILY Vitamin C (Ascorbic Acid) 500 Mg Capsule 500 Mg PO BID Finasteride 5 Mg Tablet 5 Mg PO DAILY Metoprolol Tartrate 25 Mg Tablet 25 Mg PO HS Amlodipine Besylate 5 Mg Tablet 5 Mg PO DAILY Instructions to patient/family Please see electronic discharge instructions given to patient. GISELL GOODEN MEDICAL STUDENT 05/26/18 1811: Diagnosis/Chief Complaint Date of Discharge 05/26/18 Discharge Date: May 26, 2018 Discharge Time: 08:30 Admission Diagnosis Post-op cervical spine fusion Discharge Diagnosis Post-op cervical spine fusion Hypercalcemia RLL lung mass left AMA (1) Left against medical advice (2) Hypercalcemia Status: Acute (3) Cervical stenosis of spinal canal Status: Resolved (4) Cervical spondylosis with myelopathy Status: Acute (5) Leukocytosis Status: Acute (6) Rales Status: Acute (7) Benign prostate hyperplasia Status: Chronic (8) Hypertension Status: Chronic (9) Lung mass Status: Acute (10) Former smoker Status: Chronic Discharge Summary Discharge Physical Exam Allergies: Coded Allergies: diphenhydramine (Verified Allergy, Unknown, 05/24/18) zolpidem (Verified Allergy, Unknown, 05/24/18) General Appearance: WD/WN, Anxious, Mild Distress HEENT: PERRL/EOMI, TMs Normal Respiratory: Chest Non Tender, No Accessory Muscle Use, No Respiratory Distress , Crackles, Expiration, Wheezing Cardiovascular: Regular Rate, Rhythm, No Edema, No Gallop, No Murmur, Normal Peripheral Pulses Gastrointestinal: Normal Bowel Sounds, Non Tender, Soft Extremity: Normal Range of Motion, No Calf Tenderness Skin: Normal Color, Warm/Dry Neurologic/Psychiatric: Alert, Oriented x3, No Motor/Sensory Deficits Hospital Course Was the Problem List Reviewed?: Yes This is a 78 yo white male who was admitted to [facility] s/p C3-[address] Solitario for recovery and inpatient PT/OT. The pt denied any pain or complaints on the first post op day. The was concerned for increased tremors in the pt's bilateral hands since recovering from anesthesia. The stated the tremors are chronic and the pt has not seen a Neurologist for evaluation. The pt stated he felt more "shaky" and was still unsteady in his movements since surgery. Denied numbness, weakness, tingling. The pt had notably coarse breath sounds on exam and was hypercalcemic at 12.9. He was a former smoker. A CXR was ordered and a lobulated mass was appreciated at the right lung base. On the morning of 05/26/18, the pt seemed jaundiced in the face and agitated. He stated he felt his ability to walk and use his arms was much better than before surgery. He was upset that "all this extra stuff" was being done when "that could just be worked up by my doctors at home in [facility]". It was explained to him that an abnormality was found in his blood work and chest x-ray and that the physician was obligated to work it up. He said he had refused the nebulizer treatment and was ready to go home. The pt was scheduled for CT on 05/26/18 and had received contrast but decided to leave before speaking with the attending physician, Dr. Gambino. Dr. Gambino called his primary care office to inform them of the hospital course. Other pending tests CT chest Imaging: Reviewed Imaging Films, Reviewed Imaging Report Problem Qualifiers (1) Hypertension: Hypertension type: essential hypertension Qualified Codes: I10 - Essential ( primary) hypertension (2) Benign prostate hyperplasia: Lower urinary tract symptom presence: unspecified whether lower urinary tract symptoms present Qualified Codes: N40.0 - Benign prostatic hyperplasia without lower urinary tract symptoms (3) Leukocytosis: Leukocytosis type: leukemoid reaction Qualified Codes: D72.823 - Leukemoid reaction KAREN GAMBINO DO May 26, 2018 09:49 GISELL GOODEN MEDICAL STUDENT May 26, 2018 18:11
== END 2018-05-26 09:00 | disposition left against medical advice (07) | DRG 472 ==
LOC: SURG 08:07 → EDSTATUS 10:30 → 4TH 11:25
PROVIDERS: ADMIT Orthopaedic Surgery Orthopaedic Surgery of the Spine; ATTEND Orthopaedic Surgery Orthopaedic Surgery of the Spine
PROC: 0RB30ZZ Excision of Cervical Vertebral Disc, Open Approach (ICD-10-PCS; 2018-05-24)
PROC: 0RG20A0 Fusion of 2 or more Cervical Vertebral Joints with Interbody Fusion Device, Anterior Approach, Anterior Column, Open Approach (ICD-10-PCS; principal; 2018-05-24 09:52)
DX: M48.02 Spinal stenosis, cervical region (principal); M47.12 Other spondylosis with myelopathy, cervical region; M47.22 Other spondylosis with radiculopathy, cervical region; M48.12 Ankylosing hyperostosis [Forestier], cervical region; R33.9 Retention of urine, unspecified; R05 Cough; R09.89 Other specified symptoms and signs involving the circulatory and respiratory systems; E83.52 Hypercalcemia; D72.823 Leukemoid reaction; G25.0 Essential tremor; R91.8 Other nonspecific abnormal finding of lung field; N40.0 Benign prostatic hyperplasia without lower urinary tract symptoms; R53.1 Weakness; I10 Essential (primary) hypertension; H35.30 Unspecified macular degeneration; R26.9 Unspecified abnormalities of gait and mobility; E66.9 Obesity, unspecified; M19.91 Primary osteoarthritis, unspecified site; Z96.653 Presence of artificial knee joint, bilateral; Z87.891 Personal history of nicotine dependence; Z68.38 Body mass index [BMI] 38.0-38.9, adult; Z86.59 Personal history of other mental and behavioral disorders
CPT/HCPCS: 36415; 71046; 72040; 80053; 82330; 83970; 85007; 85025; 85027; 94640; 94664

== ENCOUNTER → 2018-07-23 | Outpatient (CLI) | payer MEDICARE ==
[~2018-07-23] MED LIST changes: -ACETAMINOPHEN 325 MG TABLET PO PRN; -DOCUSATE SODIUM 100 MG (COLACE) CAP PO PRN; -HYDROcodone/APAP 5 MG/325 MG (LORTAB) TAB PO PRN; -ONDANSETRON 4 MG/2 ML (SDV) Z0FRAN IV PRN
[2018-07-23 15:18] LABS: BUN/CREATININE RATIO 13; CARBON DIOXIDE 26 MMOL/L (21-32); CHLORIDE 101 MMOL/L (98-107); CREATININE SERUM 0.99 MG/DL (0.60-1.30); GFR ESTIMATED > 60; GLUCOSE 112 MG/DL (70-105); POTASSIUM 4.1 MMOL/L (3.6-5.0); SODIUM 137 MMOL/L (135-145)
[2018-07-23 15:19] LABS: CALCIUM 11.7 MG/DL (8.5-10.1)
== END ==
LOC: LAB FS 14:32
PROVIDERS: ATTEND Family Medicine
DX: C34.91 Malignant neoplasm of unspecified part of right bronchus or lung (principal); I10 Essential (primary) hypertension; D72.829 Elevated white blood cell count, unspecified; E83.52 Hypercalcemia
CPT/HCPCS: 36415; 80048